=== PATIENT | male | born 1930 | race Caucasian/White ===

== ENCOUNTER 2016-12-08 13:38 | Outpatient (CLI) | payer MEDICARE, OTHER ==
[2016-12-08 14:31] LABS: ALT (SGPT) 18 U/L (0-55); AST (SGOT) 25 U/L (5-34); Alkaline Phosphatase 65 U/L (40-150); Anion Gap 14 mmol/L (10-20); BUN (Urea Nitrogen) 21 mg/dL (8.4-25.7); Bilirubin, Direct 0.5 mg/dL (0.1-0.3); Bilirubin, Total 1.3 mg/dL (0.2-1.2); Calc. Creatinine Clearance 0 mL/min (70-130); Calcium 9.4 mg/dL (7.8-10.44); Carbon Dioxide 21 mmol/L (23-31); Chloride 110 mmol/L (98-107); Estimated GFR-MDRD 52; LDL Cholesterol, Calculated 62 mg/dL; Protein, Total 6.9 g/dL (5.8-8.1)
== END 2016-12-08 13:39 | disposition home or self-care (01) ==
LOC: BURLAB 13:38
PROVIDERS: ATTEND Internal Medicine Cardiovascular Disease
DX: E78.00 Pure hypercholesterolemia, unspecified (principal)
CPT/HCPCS: 36415; 80048; 80061; 80076

== ENCOUNTER 2017-07-02 10:40 | Outpatient (CLI) | payer MEDICARE, OTHER ==
[2017-07-02 11:24] LABS: INR-International Normal Ratio 1.4; Prothrombin Time 17.8 SEC (12.0-14.7)
== END 2017-07-02 10:41 | disposition home or self-care (01) ==
LOC: BURLAB 10:40
PROVIDERS: ATTEND Urology
DX: C61 Malignant neoplasm of prostate (principal)
CPT/HCPCS: 36415; 85610

== ENCOUNTER 2017-09-16 17:10 | Emergency (ER) | payer MEDICARE, OTHER ==
[2017-09-16] MEDS ORDERED: HYDROcodone/Acetaminophen 5/325 mg Tablet ONE (19:59)
--- NOTE | 2017-09-16 20:14 | CT ---
CT PELVIS WITHOUT CONTRAST 09/16/[address] of the pelvis was performed for evaluation of left hip pain. There is a history of prostate cancer. Axial slices were acquired, then coronal and sagittal reconstructions were done. There is no area of bony destruction noted. No sclerotic metastases were seen in the bones. The hip joints have some minor degenerative changes in them but the findings are symmetrical and not really v cristhian remarkable for age. The patient has a prominent grade I spondylolisthesis of L5 on S1 with spondylolysis bilaterally. The re is a diffuse bulging of the disc at this level. Facet arthritis and facet overgrowth is present, m ore so on the right than the left side. The prostate is quite large measuring about 5.8 x 3.4 cm. The soft tissues of the pelvis showed no in flammatory change or free fluid. A fat filled right inguinal hernia was noted. No pelvic masses were detected. IMPRESSION: 1. Prominent spondylolisthesis of L5 on S1 with bilateral spondylolysis and diffuse bulging of t he disc. This plus the degenerative changes present could potentially cause neural impingement, but t his would be better assessed with an MRI. 2. Prostatic enlargement. No evidence of bony metastatic disease on these images. 3. Fat filled right inguinal hernia. Findings discussed with Dr. Aguilar at 1910 on 09/16/17. POS: HOME
== END 2017-09-16 20:12 | disposition home or self-care (01) ==
LOC: BURERS 17:10
DX: M54.16 Radiculopathy, lumbar region (principal); N40.0 Benign prostatic hyperplasia without lower urinary tract symptoms; E78.5 Hyperlipidemia, unspecified; E78.2 Mixed hyperlipidemia; I10 Essential (primary) hypertension
CPT/HCPCS: 72192

== ENCOUNTER 2019-04-13 11:14 | Emergency (ER) | payer MEDICARE, OTHER ==
--- NOTE | 2019-04-13 22:39 | CT ---
CT CERVICAL SPINE: Date: 04/13/[address] of the cervical spine was done for evaluation of neck pain. Axial slices were acquired, fol lowed by coronal and sagittal reconstructions. FINDINGS: No acute fracture or dislocation seen. There is some slight downsloping of the superior end plate of C7, but does not appear acute. Disc space narrowing is present at C5-C6 and C6-C7. Minimal anterior s ubluxation of C4 on C5 appears to be due to facet arthritis. Findings by level follow: C1-C2: No acute findings. C2-C3: No acute findings. C3-C4: Severe left facet arthritis with mild to moderate right foraminal narrowing. C4-C5: Severe right facet arthritis. Moderate left foraminal narrowing and moderate to severe right foraminal narrowing. There does appear to be a disc osteophyte complex and I cannot exclude a piece o f calcified disc complex in the right neural foramen. C5-C6: Moderately severe bilateral facet arthritis with bilateral moderate foraminal narrowing. C6-C7: Moderate bilateral facet arthritis with severe bilateral foraminal narrowing. C7-T1: No acute findings. T1-T2: No acute findings. T2-T3: No acute findings. T3-T4: No acute findings. The lung apices are clear. 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 POS: HOME
== END 2019-04-13 12:55 | disposition home or self-care (01) ==
LOC: BURERS 11:14
DX: M54.2 Cervicalgia (principal); N40.0 Benign prostatic hyperplasia without lower urinary tract symptoms; E78.2 Mixed hyperlipidemia; I10 Essential (primary) hypertension; Z79.899 Other long term (current) drug therapy; Z79.01 Long term (current) use of anticoagulants
CPT/HCPCS: 72125; 99283

== ENCOUNTER 2020-03-09 10:05 | Emergency (ER) | payer MEDICARE, OTHER ==
[2020-03-09] MEDS ORDERED: Acetaminophen 500 MG TAB ONE (10:26)
== END 2020-03-09 10:32 | disposition home or self-care (01) ==
LOC: BURERS 10:05
DX: S16.1XXA Strain of muscle, fascia and tendon at neck level, initial encounter (principal); M47.812 Spondylosis without myelopathy or radiculopathy, cervical region; E78.5 Hyperlipidemia, unspecified; I10 Essential (primary) hypertension; N40.0 Benign prostatic hyperplasia without lower urinary tract symptoms; E78.2 Mixed hyperlipidemia; X58.XXXA Exposure to other specified factors, initial encounter
CPT/HCPCS: 99283